=== PATIENT | male | born 1975 | race Caucasian/White ===

== ENCOUNTER 2022-03-29 23:24 | Inpatient (IN) | payer OTHER ==
[2022-03-29 23:27] VITALS: BMI 27.1
[2022-03-30] MEDS ORDERED: ACETAMINOPHEN 500 MG TABLET (FP) PO ONE (00:46)
[2022-03-30] MEDS ORDERED: ACETAMINOPHEN 325 MG TABLET (FP) ONE ×2 (00:51→14:36)
[2022-03-30 02:05] LABS: BASO % 0.8 % (0-2.0); EOS % 0.6 % (0-4.5); HEMATOCRIT 29.9 % (35.4-49); HEMOGLOBIN 10.1 GM/dL (11.7-16.9); LYMPH % 27.9 % (8-40); MCHC 33.7 g/dl (32.0-35.9); MEAN CELL VOLUME 77.2 fl (80-96); MEAN PLT VOLUME 7.4 fl (7.5-11.1); MONO % 10.1 % (3.8-10.2); NEUT % 60.6 % (42.8-82.8); PLATELET COUNT 70 10^3/uL (134-434); RBC 3.87 M/mm3 (4.00-5.60); RDW 16.9 % (11.9-15.9); WHITE BLOOD COUNT 2.6 K/mm3 (4.0-10.0)
[2022-03-30 02:23] LABS: CALCIUM 8.1 mg/dL (8.5-10.1)
[2022-03-30 02:24] LABS: ALBUMIN 3.1 g/dl (3.4-5.0); BLOOD UREA NITROGEN 6.2 mg/dL (7-18); CO2 25 mmol/L (21-32); GLUCOSE,RANDOM 94 mg/dL (74-106)
[2022-03-30 02:27] LABS: CREATININE 0.6 mg/dL (0.55-1.3); SGOT/AST 57 U/L (15-37); SGPT/ALT 37 U/L (13-61)
[2022-03-30 02:28] LABS: TOT PROT 8.1 g/dl (6.4-8.2)
[2022-03-30 02:29] LABS: BILIRUBIN,TOTAL 1.8 mg/dL (0.2-1)
[2022-03-30 02:31] LABS: ALK PHOS 90 U/L (45-117)
[2022-03-30 02:38] LABS: ANION GAP 8 MMOL/L (8-16); CHLORIDE 105 mmol/L (98-107); SODIUM 137 mmol/L (136-145)
[2022-03-30] MEDS ORDERED: VANCOMYCIN 1 GM in D5W (PRE-DOCKED) 1,000 MG/250 ML IVPB ONE (02:53)
[2022-03-30] MEDS ORDERED: KCL 10 MEQ IVPB 10 MEQ/100 ML INFUS.BAG IVPB ONE ×3 (02:57→05:34)
[2022-03-30] MEDS: KCL 10 MEQ IVPB 10 MEQ/100 ML INFUS.BAG IVPB SCH ×3 (03:03→05:58)
[2022-03-30] MEDS ORDERED: VANCOMYCIN/WATER FOR INJ (PEG) 1,000 MG/200 ML BAG IVPB ONE (03:16)
[2022-03-30] MEDS ORDERED: THIAMINE HCL 200 MG/2 ML VIAL IVPB ONE (03:45)
[2022-03-30] MEDS ORDERED: MEROPENEM 1 GM in DEXTROSE 5%-WATER 100 ML IVPB ONE (03:51)
[2022-03-30] MEDS ORDERED: THIAMINE HCL 200 MG/2 ML VIAL ONE (04:32)
[2022-03-30] MEDS: LACTATED RINGERS SOLUTION 1,000 ML IV SCH ×2 (04:38→21:17)
[2022-03-30 04:48] LABS: MAGNESIUM 1.6 mg/dL (1.8-2.4)
[2022-03-30 04:52] LABS: PHOSPHOROUS 2.9 mg/dL (2.5-4.9)
[2022-03-30] MEDS ORDERED: MAGNESIUM 2GM/50ML STERILE WATER IVPB IVPB ONE (06:35)
[2022-03-30] MEDS ORDERED: chlordiazePOXIDE HCL 25 MG CAPSULE PO PRN (06:39)
[2022-03-30] MEDS ORDERED: MAGNESIUM SULFATE IN WATER 2 GM/50 ML IVPB IVPB ONE (06:58)
[2022-03-30] MEDS ORDERED: CLINDAMYCIN 300 MG PREMIX IVPB 300 MG/50 ML BAG IVPB SCH (07:00)
[2022-03-30] MEDS ORDERED: chlordiazePOXIDE HCL 25 MG CAPSULE ONE ×3 (07:07→19:53)
[2022-03-30] MEDS: chlordiazePOXIDE HCL 25 MG CAPSULE PO SCH ×4 (07:09→23:36)
[2022-03-30 07:14] LABS: MAGNESIUM 1.7 mg/dL (1.8-2.4)
[2022-03-30 07:18] LABS: PHOSPHOROUS 3.1 mg/dL (2.5-4.9)
[2022-03-30 08:23] LABS: PH,URINE 7.5 (5.0-8.0); URINE APPEARANCE CLEAR; URINE BILIRUBIN NEGATIVE (NEGATIVE); URINE COLOR DK YELLOW; URINE GLUCOSE (UA) NEGATIVE (NEGATIVE); URINE KETONE 1+ (NEGATIVE); URINE LEUK ESTERASE NEGATIVE (NEGATIVE); URINE NITRITE NEGATIVE (NEGATIVE); URINE PROTEIN NEGATIVE (NEGATIVE)
[2022-03-30] MEDS ORDERED: MULTIVITAMINS (DAILY MVI) TABLET (FP) ONE (08:58)
[2022-03-30] MEDS ORDERED: THIAMINE HCL 100 MG TABLET (FP) ONE (08:58)
[2022-03-30] MEDS ORDERED: POTASSIUM CHLORIDE TABS 20 MEQ TABLET.ER (FP) PO ONE ×2 (08:58→09:53)
[2022-03-30] MEDS: POTASSIUM CHLORIDE TABS 20 MEQ TABLET.ER (FP) PO SCH ×2 (09:09→09:53)
[2022-03-30] MEDS: MULTIVITAMINS (DAILY MVI) TABLET (FP) PO SCH (09:09)
[2022-03-30] MEDS: THIAMINE HCL 100 MG TABLET (FP) PO SCH (09:10)
[2022-03-30] MEDS: FOLIC ACID 1 MG TABLET (FP) PO SCH (09:54)
[2022-03-30] MEDS ORDERED: FOLIC ACID 1 MG TABLET (FP) ONE (09:54)
[2022-03-30] MEDS ORDERED: ENOXAPARIN NA (PORCINE) 40 MG/0.4 ML DISP.SYRIN SQ SCH (10:00)
[2022-03-30 10:50] LABS: INR 1.38 (0.83-1.09); PROTHROMBIN TIME (PATIENT) 15.9 SEC (9.7-13.0)
[2022-03-30 10:53] LABS: ACTIVATED PTT 35.6 SECONDS (25.2-36.5); BASO % 0.4 % (0-2.0); EOS % 2.9 % (0-4.5); HEMATOCRIT 30.1 % (35.4-49); HEMOGLOBIN 10.1 GM/dL (11.7-16.9); MCH 26.1 pg (25.7-33.7); MCHC 33.7 g/dl (32.0-35.9); MEAN CELL VOLUME 77.3 fl (80-96); MEAN PLT VOLUME 7.8 fl (7.5-11.1); MONO % 9.2 % (3.8-10.2); NEUT % 60.5 % (42.8-82.8); PLATELET COUNT 71 10^3/uL (134-434); RBC 3.89 M/mm3 (4.00-5.60); RDW 17.1 % (11.9-15.9)
[2022-03-30 10:57] LABS: RETICULOCYTES 1.48 % (0.5-1.5)
[2022-03-30 11:03] LABS: CHLORIDE 105 mmol/L (98-107); SODIUM 136 mmol/L (136-145)
[2022-03-30 11:25] LABS: GLUCOSE,RANDOM 137 mg/dL (74-106); TOTAL IRON BINDING CAPACITY 343 ug/dL (250-450)
[2022-03-30 11:27] LABS: ALK PHOS 85 U/L (45-117); CREATININE 0.7 mg/dL (0.55-1.3); SGPT/ALT 35 U/L (13-61); TOT PROT 7.7 g/dl (6.4-8.2)
[2022-03-30 11:29] LABS: ALBUMIN 2.9 g/dl (3.4-5.0); IRON SERUM 57 ug/dL (50-175); SGOT/AST 53 U/L (15-37)
[2022-03-30 11:31] LABS: CALCIUM 8.2 mg/dL (8.5-10.1); CO2 23 mmol/L (21-32)
[2022-03-30 12:25] LABS: LDH 179 U/L (87-246)
[2022-03-30 12:26] LABS: ANION GAP 8 MMOL/L (8-16)
[2022-03-30] MEDS ORDERED: CLINDAMYCIN 600MG PREMIX IVPB 600 MG/50 ML BAG IVPB ONE (19:46)
[2022-03-30] MEDS: CLINDAMYCIN 600MG PREMIX IVPB 600 MG/50 ML BAG IVPB SCH (19:50)
[2022-03-30] MEDS: LORazepam 2 MG/ML SDV VIAL IVPUSH PRN (21:12)
[2022-03-31] MEDS: CLINDAMYCIN 600MG PREMIX IVPB 600 MG/50 ML BAG IVPB SCH ×3 (01:03→18:03)
[2022-03-31] MEDS: chlordiazePOXIDE HCL 25 MG CAPSULE PO SCH ×4 (05:55→22:03)
[2022-03-31] MEDS: LACTATED RINGERS SOLUTION 1,000 ML IV SCH (05:56)
[2022-03-31] MEDS: FOLIC ACID 1 MG TABLET (FP) PO SCH (09:48)
[2022-03-31] MEDS: VENLAFAXINE HCL 75 MG E.R. CAPSULES PO SCH (09:48)
[2022-03-31] MEDS: MULTIVITAMINS (DAILY MVI) TABLET (FP) PO SCH (09:48)
[2022-03-31] MEDS: LORazepam 2 MG/ML SDV VIAL IVPUSH PRN ×2 (09:54→22:49)
[2022-03-31 10:47] LABS: BASO % 0.9 % (0-2.0); EOS % 3.5 % (0-4.5); HEMATOCRIT 28.4 % (35.4-49); HEMOGLOBIN 9.5 GM/dL (11.7-16.9); LYMPH % 34.2 % (8-40); MCH 26.3 pg (25.7-33.7); MCHC 33.4 g/dl (32.0-35.9); MEAN CELL VOLUME 78.6 fl (80-96); MEAN PLT VOLUME 7.4 fl (7.5-11.1); MONO % 8.8 % (3.8-10.2); NEUT % 52.6 % (42.8-82.8); PLATELET COUNT 66 10^3/uL (134-434); RBC 3.61 M/mm3 (4.00-5.60)
[2022-03-31 10:56] LABS: WHITE BLOOD COUNT 1.9 K/mm3 (4.0-10.0)
[2022-03-31 11:08] LABS: CALCIUM 7.9 mg/dL (8.5-10.1)
[2022-03-31 11:09] LABS: ALBUMIN 2.4 g/dl (3.4-5.0); BLOOD UREA NITROGEN 9.1 mg/dL (7-18)
[2022-03-31 11:10] LABS: MAGNESIUM 1.8 mg/dL (1.8-2.4)
[2022-03-31 11:12] LABS: CREATININE 0.5 mg/dL (0.55-1.3)
[2022-03-31 11:15] LABS: BILIRUBIN,TOTAL 0.9 mg/dL (0.2-1); TOT PROT 6.7 g/dl (6.4-8.2)
[2022-03-31] MEDS: THIAMINE HCL 100 MG TABLET (FP) PO SCH (12:33)
[2022-03-31] MEDS: AZTREONAM 1 GM VIAL (RESTRICTED TO ID) IVPB SCH ×2 (17:11→23:49)
[2022-03-31] MEDS: ACETAMINOPHEN 325 MG TABLET (FP) PO PRN (22:00)
[2022-03-31] MEDS: HEPARIN NA (PORCINE) 5,000 UNITS/ML 1ML VIAL SQ SCH (22:01)
[2022-04-01] MEDS ORDERED: chlordiazePOXIDE HCL 10 MG CAPSULE PO PRN
[2022-04-01] MEDS: AZTREONAM 1 GM in DEXTROSE 5%-WATER - 50 ML IVPB SCH ×3 (02:09→18:28)
[2022-04-01] MEDS: CLINDAMYCIN 600MG PREMIX IVPB 600 MG/50 ML BAG IVPB SCH ×3 (02:44→19:25)
[2022-04-01] MEDS: ACETAMINOPHEN 325 MG TABLET (FP) PO PRN ×2 (04:15→23:30)
[2022-04-01] MEDS: chlordiazePOXIDE HCL 10 MG CAPSULE PO SCH ×4 (05:40→23:27)
[2022-04-01] MEDS: AZTREONAM 1 GM VIAL (RESTRICTED TO ID) IVPB SCH ×2 (07:41→18:15)
[2022-04-01] MEDS: VENLAFAXINE HCL 75 MG E.R. CAPSULES PO SCH (09:18)
[2022-04-01] MEDS: FOLIC ACID 1 MG TABLET (FP) PO SCH (09:18)
[2022-04-01] MEDS: THIAMINE HCL 100 MG TABLET (FP) PO SCH (09:18)
[2022-04-01] MEDS: MULTIVITAMINS (DAILY MVI) TABLET (FP) PO SCH (09:18)
[2022-04-01] MEDS: HEPARIN NA (PORCINE) 5,000 UNITS/ML 1ML VIAL SQ SCH ×2 (09:18→21:44)
[2022-04-01 09:38] LABS: BASO % 1.2 % (0-2.0); HEMATOCRIT 30.1 % (35.4-49); HEMOGLOBIN 10.3 GM/dL (11.7-16.9); LYMPH % 26.3 % (8-40); MCH 26.5 pg (25.7-33.7); MCHC 34.3 g/dl (32.0-35.9); MEAN CELL VOLUME 77.3 fl (80-96); MEAN PLT VOLUME 8.3 fl (7.5-11.1); NEUT % 59.5 % (42.8-82.8); PLATELET COUNT 84 10^3/uL (134-434); WHITE BLOOD COUNT 2.7 K/mm3 (4.0-10.0)
[2022-04-01 10:06] LABS: CALCIUM 7.8 mg/dL (8.5-10.1)
[2022-04-01 10:07] LABS: ALBUMIN 2.9 g/dl (3.4-5.0); BLOOD UREA NITROGEN 8.5 mg/dL (7-18)
[2022-04-01 10:10] LABS: CREATININE 0.5 mg/dL (0.55-1.3)
[2022-04-01 10:12] LABS: BILIRUBIN,TOTAL 1.4 mg/dL (0.2-1); TOT PROT 7.8 g/dl (6.4-8.2)
[2022-04-01] MEDS ORDERED: POTASSIUM CHLORIDE ORAL LIQUID 20 MEQ/15 ML PO ONE (11:03)
[2022-04-01 12:53] LABS: HIV INTERPRETATION NEGATIVE (NEGATIVE)
[2022-04-01] MEDS: MAGNESIUM OXIDE 400 MG TABLET (FP) PO SCH ×2 (14:25→21:44)
[2022-04-01] MEDS: LORazepam 2 MG/ML SDV VIAL IVPUSH PRN (20:18)
[2022-04-02] MEDS: CLINDAMYCIN 600MG PREMIX IVPB 600 MG/50 ML BAG IVPB SCH ×2 (01:32→10:03)
[2022-04-02] MEDS: AZTREONAM 1 GM in DEXTROSE 5%-WATER - 50 ML IVPB SCH ×2 (02:22→09:36)
[2022-04-02] MEDS: LORazepam 2 MG/ML SDV VIAL IVPUSH PRN (02:42)
[2022-04-02] MEDS: chlordiazePOXIDE HCL 10 MG CAPSULE PO SCH ×2 (05:01→16:55)
[2022-04-02] MEDS: ACETAMINOPHEN 325 MG TABLET (FP) PO PRN (06:56)
[2022-04-02] MEDS: FOLIC ACID 1 MG TABLET (FP) PO SCH (09:35)
[2022-04-02] MEDS: VENLAFAXINE HCL 75 MG E.R. CAPSULES PO SCH (09:35)
[2022-04-02] MEDS: MULTIVITAMINS (DAILY MVI) TABLET (FP) PO SCH (09:35)
[2022-04-02] MEDS: THIAMINE HCL 100 MG TABLET (FP) PO SCH (09:35)
[2022-04-02] MEDS: HEPARIN NA (PORCINE) 5,000 UNITS/ML 1ML VIAL SQ SCH ×2 (09:36→21:54)
[2022-04-02] MEDS: MAGNESIUM OXIDE 400 MG TABLET (FP) PO SCH ×2 (09:37→21:54)
[2022-04-03] MEDS ORDERED: chlordiazePOXIDE HCL 10 MG CAPSULE PO ONE (05:00)
[2022-04-03] MEDS: MAGNESIUM OXIDE 400 MG TABLET (FP) PO SCH ×2 (09:57→21:57)
[2022-04-03] MEDS: THIAMINE HCL 100 MG TABLET (FP) PO SCH (09:57)
[2022-04-03] MEDS: VENLAFAXINE HCL 75 MG E.R. CAPSULES PO SCH (09:57)
[2022-04-03] MEDS: FOLIC ACID 1 MG TABLET (FP) PO SCH (09:57)
[2022-04-03] MEDS: MULTIVITAMINS (DAILY MVI) TABLET (FP) PO SCH (09:57)
[2022-04-03] MEDS: HEPARIN NA (PORCINE) 5,000 UNITS/ML 1ML VIAL SQ SCH ×2 (09:58→21:56)
[2022-04-03 10:02] LABS: BASO % 1.3 % (0-2.0); EOS % 3.6 % (0-4.5); HEMATOCRIT 35.2 % (35.4-49); HEMOGLOBIN 11.6 GM/dL (11.7-16.9); MEAN CELL VOLUME 78.8 fl (80-96); MEAN PLT VOLUME 8.1 fl (7.5-11.1); MONO % 9.6 % (3.8-10.2); NEUT % 52.5 % (42.8-82.8); PLATELET COUNT 96 10^3/uL (134-434); RBC 4.46 M/mm3 (4.00-5.60); RDW 17.1 % (11.9-15.9); WHITE BLOOD COUNT 2.6 K/mm3 (4.0-10.0)
[2022-04-03 10:10] LABS: CALCIUM 8.2 mg/dL (8.5-10.1)
[2022-04-03 10:11] LABS: ALBUMIN 2.8 g/dl (3.4-5.0); BLOOD UREA NITROGEN 6.9 mg/dL (7-18)
[2022-04-03 10:14] LABS: CREATININE 0.5 mg/dL (0.55-1.3)
[2022-04-03 10:16] LABS: TOT PROT 7.8 g/dl (6.4-8.2)
[2022-04-03] MEDS ORDERED: INSULIN (NOVOLOG) ASPART 100 UNITS/ML 10ML VIAL ONE (21:34)
[2022-04-04] MEDS: FOLIC ACID 1 MG TABLET (FP) PO SCH (09:24)
[2022-04-04] MEDS: THIAMINE HCL 100 MG TABLET (FP) PO SCH (09:24)
[2022-04-04] MEDS: MAGNESIUM OXIDE 400 MG TABLET (FP) PO SCH ×2 (09:24→22:12)
[2022-04-04] MEDS: VENLAFAXINE HCL 75 MG E.R. CAPSULES PO SCH (09:24)
[2022-04-04] MEDS: MULTIVITAMINS (DAILY MVI) TABLET (FP) PO SCH (09:25)
[2022-04-04 09:57] LABS: BASO % 1.2 % (0-2.0); EOS % 3.1 % (0-4.5); HEMATOCRIT 33.2 % (35.4-49); HEMOGLOBIN 11.4 GM/dL (11.7-16.9); LYMPH % 34.5 % (8-40); MCH 26.8 pg (25.7-33.7); MCHC 34.3 g/dl (32.0-35.9); MEAN CELL VOLUME 77.9 fl (80-96); MEAN PLT VOLUME 7.4 fl (7.5-11.1); NEUT % 51.2 % (42.8-82.8); PLATELET COUNT 100 10^3/uL (134-434); RBC 4.26 M/mm3 (4.00-5.60); RDW 18.2 % (11.9-15.9); WHITE BLOOD COUNT 2.9 K/mm3 (4.0-10.0)
[2022-04-04 10:21] LABS: BLOOD UREA NITROGEN 7.4 mg/dL (7-18)
[2022-04-04 10:23] LABS: CALCIUM 8.5 mg/dL (8.5-10.1)
[2022-04-04 10:24] LABS: CREATININE 0.5 mg/dL (0.55-1.3)
[2022-04-04] MEDS: HEPARIN NA (PORCINE) 5,000 UNITS/ML 1ML VIAL SQ SCH ×2 (10:33→22:15)
[2022-04-04] MEDS ORDERED: POTASSIUM CHLORIDE TABS 20 MEQ TABLET.ER (FP) PO ONE (11:46)
[2022-04-04] MEDS: ACETAMINOPHEN 325 MG TABLET (FP) PO PRN (22:12)
[2022-04-05 08:04] LABS: CALCIUM 8.5 mg/dL (8.5-10.1)
[2022-04-05 08:05] LABS: BLOOD UREA NITROGEN 8.8 mg/dL (7-18)
[2022-04-05 08:08] LABS: CREATININE 0.5 mg/dL (0.55-1.3)
[2022-04-05 08:25] LABS: BASO % 1.3 % (0-2.0); EOS % 2.4 % (0-4.5); HEMATOCRIT 32.2 % (35.4-49); HEMOGLOBIN 10.8 GM/dL (11.7-16.9); LYMPH % 42.4 % (8-40); MCH 26.2 pg (25.7-33.7); MCHC 33.6 g/dl (32.0-35.9); MEAN CELL VOLUME 78.1 fl (80-96); MEAN PLT VOLUME 7.6 fl (7.5-11.1); MONO % 12.3 % (3.8-10.2); NEUT % 41.6 % (42.8-82.8); PLATELET COUNT 95 10^3/uL (134-434); RBC 4.13 M/mm3 (4.00-5.60); RDW 17.9 % (11.9-15.9); WHITE BLOOD COUNT 2.4 K/mm3 (4.0-10.0)
[2022-04-05] MEDS ORDERED: POTASSIUM CHLORIDE TABS 20 MEQ TABLET.ER (FP) PO SCH (10:00)
[2022-04-05] MEDS: HEPARIN NA (PORCINE) 5,000 UNITS/ML 1ML VIAL SQ SCH (10:04)
[2022-04-05] MEDS: VENLAFAXINE HCL 75 MG E.R. CAPSULES PO SCH (10:05)
[2022-04-05] MEDS: THIAMINE HCL 100 MG TABLET (FP) PO SCH (10:05)
[2022-04-05] MEDS: FOLIC ACID 1 MG TABLET (FP) PO SCH (10:05)
[2022-04-05] MEDS: MAGNESIUM OXIDE 400 MG TABLET (FP) PO SCH (10:06)
[2022-04-05] MEDS: MULTIVITAMINS (DAILY MVI) TABLET (FP) PO SCH (10:06)
[2022-04-05 15:14] VITALS: TEMP 97.3
[2022-04-05 16:06] VITALS: BP 115/71; PULSE 73; RESP 20
== END 2022-04-05 16:56 | disposition other institution (70) | DRG 380 ==
LOC: JER 23:24 → JERBED 03-30 03:04 → OBSVTOIN 03-30 03:47 → JERBED 03-30 09:18 → J8W 03-30 20:24
PROVIDERS: ADMIT Internal Medicine; ATTEND Internal Medicine
DX: L97.329 Non-pressure chronic ulcer of left ankle with unspecified severity (principal); L03.90 Cellulitis, unspecified; D61.818 Other pancytopenia; F10.239 Alcohol dependence with withdrawal, unspecified; S91.009A Unspecified open wound, unspecified ankle, initial encounter; E87.6 Hypokalemia; K74.60 Unspecified cirrhosis of liver; D69.6 Thrombocytopenia, unspecified; I83.023 Varicose veins of left lower extremity with ulcer of ankle; F17.210 Nicotine dependence, cigarettes, uncomplicated; Z88.0 Allergy status to penicillin; E83.42 Hypomagnesemia; X58.XXXA Exposure to other specified factors, initial encounter; Y93.9 Activity, unspecified; Y92.89 Other specified places as the place of occurrence of the external cause; Y99.9 Unspecified external cause status
CPT/HCPCS: 0241U-QW; 36415; 73610-TC-LT-FY; 73630-TC-LT; 80048; 80053; 81003; 82728; 82962; 83540; 83550; 83615; 83735; 84100; 84155; 84165; 85025; 85045; 85610; 85730; 86140; 87040; 87070; 87086; 87186; 87205; 87389; 87522; 87529; 88300-TC; 93005; 93010; 99285-25; G0378; J1644

== ENCOUNTER 2022-04-05 17:24 | Inpatient (IN) | payer OTHER ==
[2022-04-05 18:32] VITALS: BMI 28.0
[2022-04-05] MEDS ORDERED: MELATONIN 5 MG TABLETS PO PRN (19:59)
[2022-04-05] MEDS ORDERED: POLYETHYLENE GLYCOL (HEALTHYLAX) 3350 17 GM PACKET PO PRN (19:59)
[2022-04-05] MEDS ORDERED: BENZOCAINE/MENTHOL (CHLORASEPTIC ) LOZENGE MM PRN (19:59)
[2022-04-05] MEDS ORDERED: LOPERAMIDE HCL 2 MG CAPSULE PO PRN (19:59)
[2022-04-05] MEDS ORDERED: guaiFENesin 200 MG/10 ML 10 ML UNIT-DOSE CUPS PO PRN (19:59)
[2022-04-05] MEDS ORDERED: MAGNESIUM HYDROX 2400MG/30ML ORAL SUSPENSION 30 ML CUP PO PRN (19:59)
[2022-04-05] MEDS ORDERED: MAG HYDROX/AL HYDROX/SIMETH 30 ML UNIT-DOSE CUP PO PRN (19:59)
[2022-04-05] MEDS ORDERED: P-EPHED 60MG/TRIPROLIDI 2.5MG TABLET PO PRN (19:59)
[2022-04-06] MEDS: THIAMINE HCL 100 MG TABLET (FP) PO SCH ×2 (00:47→21:42)
[2022-04-06] MEDS: IBUPROFEN 400 MG TABLET (FP) PO PRN (00:47)
[2022-04-06] MEDS: PRENATAL VITAMINS W/ FOLIC ACID TABLET (FP) PO SCH (10:16)
[2022-04-06] MEDS: traZODone HCL 50 MG TABLET (FP) PO SCH (21:43)
[2022-04-07] MEDS: PRENATAL VITAMINS W/ FOLIC ACID TABLET (FP) PO SCH (10:11)
[2022-04-07] MEDS: IBUPROFEN 400 MG TABLET (FP) PO PRN (10:13)
[2022-04-07] MEDS: THIAMINE HCL 100 MG TABLET (FP) PO SCH (21:34)
[2022-04-07] MEDS: traZODone HCL 50 MG TABLET (FP) PO SCH (21:34)
[2022-04-08] MEDS: PRENATAL VITAMINS W/ FOLIC ACID TABLET (FP) PO SCH (11:26)
[2022-04-08] MEDS: traZODone HCL 50 MG TABLET (FP) PO SCH (21:54)
[2022-04-08] MEDS: THIAMINE HCL 100 MG TABLET (FP) PO SCH (21:54)
[2022-04-09] MEDS: IBUPROFEN 400 MG TABLET (FP) PO PRN (05:59)
[2022-04-09] MEDS: PRENATAL VITAMINS W/ FOLIC ACID TABLET (FP) PO SCH (10:38)
[2022-04-09] MEDS: IBUPROFEN 600 MG TABLET (FP) PO PRN (13:05)
[2022-04-09] MEDS: traZODone HCL 50 MG TABLET (FP) PO SCH (21:17)
[2022-04-09] MEDS: THIAMINE HCL 100 MG TABLET (FP) PO SCH (21:17)
[2022-04-10] MEDS: IBUPROFEN 600 MG TABLET (FP) PO PRN ×2 (06:39→21:37)
[2022-04-10] MEDS: PRENATAL VITAMINS W/ FOLIC ACID TABLET (FP) PO SCH (10:25)
[2022-04-10] MEDS: traZODone HCL 50 MG TABLET (FP) PO SCH (21:36)
[2022-04-10] MEDS: THIAMINE HCL 100 MG TABLET (FP) PO SCH (21:36)
[2022-04-11] MEDS: IBUPROFEN 600 MG TABLET (FP) PO PRN ×2 (06:15→12:57)
[2022-04-11 06:53] VITALS: BP 104/60; PULSE 97; RESP 16; TEMP 97.8
[2022-04-11] MEDS: PRENATAL VITAMINS W/ FOLIC ACID TABLET (FP) PO SCH (10:17)
[2022-04-11 14:54] LABS: BASO % 2.1 % (0-2.0); EOS % 2.4 % (0-4.5); HEMATOCRIT 29.3 % (35.4-49); HEMOGLOBIN 9.6 GM/dL (11.7-16.9); LYMPH % 29.4 % (8-40); MCH 26.3 pg (25.7-33.7); MCHC 32.6 g/dl (32.0-35.9); MEAN CELL VOLUME 80.5 fl (80-96); MEAN PLT VOLUME 8.8 fl (7.5-11.1); MONO % 10.5 % (3.8-10.2); NEUT % 55.6 % (42.8-82.8); PLATELET COUNT 101 10^3/uL (134-434); RBC 3.64 M/mm3 (4.00-5.60); RDW 18.7 % (11.9-15.9); WHITE BLOOD COUNT 2.8 K/mm3 (4.0-10.0)
[2022-04-11 15:07] LABS: BILIRUBIN,TOTAL 0.5 mg/dL (0.2-1); CALCIUM 8.5 mg/dL (8.5-10.1); TOT PROT 6.9 g/dl (6.4-8.2)
[2022-04-11 15:08] LABS: ALBUMIN 2.7 g/dl (3.4-5.0); BLOOD UREA NITROGEN 5.9 mg/dL (7-18)
[2022-04-11 15:11] LABS: CREATININE 0.6 mg/dL (0.55-1.3)
== END 2022-04-11 15:22 | disposition left against medical advice (07) | DRG 770 ==
LOC: YASAS 17:24 → Y3W 20:07
PROVIDERS: ADMIT Allergy & Immunology; ATTEND Psychiatry & Neurology Pain Medicine
PROC: HZ42ZZZ Group Counseling for Substance Abuse Treatment, Cognitive-Behavioral (ICD-10-PCS; principal; 2022-04-05)
DX: F10.20 Alcohol dependence, uncomplicated (principal); F17.210 Nicotine dependence, cigarettes, uncomplicated; F10.282 Alcohol dependence with alcohol-induced sleep disorder; F39 Unspecified mood [affective] disorder; F43.10 Post-traumatic stress disorder, unspecified; F41.9 Anxiety disorder, unspecified; F32.A Depression, unspecified; E87.6 Hypokalemia; K74.60 Unspecified cirrhosis of liver; L97.329 Non-pressure chronic ulcer of left ankle with unspecified severity; R76.11 Nonspecific reaction to tuberculin skin test without active tuberculosis; Z87.820 Personal history of traumatic brain injury; Z99.89 Dependence on other enabling machines and devices; Z88.0 Allergy status to penicillin
CPT/HCPCS: 36415; 71046-TC-FY; 80053; 84132; 85025; C9803-CS; U0003; U0005

== ENCOUNTER 2023-11-25 03:40 | Inpatient (IN) | payer OTHER ==
[2023-11-25 03:44] VITALS: BMI 28.3
[2023-11-25] MEDS ORDERED: chlordiazePOXIDE HCL 25 MG CAPSULE ONE (05:20)
[2023-11-25] MEDS: chlordiazePOXIDE HCL 25 MG CAPSULE PO ONE (05:24)
[2023-11-25 06:59] LABS: HEMATOCRIT 31.8 % (35.4-49); HEMOGLOBIN 10.9 GM/dL (11.7-16.9); MCH 29.7 pg (25.7-33.7); MCHC 34.3 g/dl (32.0-35.9); MEAN CELL VOLUME 86.7 fl (80-96); PLATELET COUNT 82 10^3/uL (134-434); RBC 3.67 M/mm3 (4.00-5.60); RDW 17.8 % (11.9-15.9); WHITE BLOOD COUNT 2.8 K/mm3 (4.0-10.0)
[2023-11-25 07:16] LABS: CHLORIDE 103 mmol/L (98-107); SODIUM 135 mmol/L (136-145)
[2023-11-25 07:19] LABS: ALBUMIN 2.7 g/dl (3.4-5.0); BLOOD UREA NITROGEN 6.6 mg/dL (7-18); CALCIUM 7.7 mg/dL (8.5-10.1); CO2 26 mmol/L (21-32); GLUCOSE,RANDOM 82 mg/dL (74-106)
[2023-11-25 07:22] LABS: SGOT/AST 92 U/L (15-37); SGPT/ALT 48 U/L (13-61)
[2023-11-25 07:23] LABS: CREATININE 0.5 mg/dL (0.55-1.3)
[2023-11-25 07:24] LABS: BILIRUBIN,TOTAL 2.5 mg/dL (0.2-1); TOT PROT 7.9 g/dl (6.4-8.2)
[2023-11-25 07:25] LABS: ALK PHOS 149 U/L (45-117)
[2023-11-25 07:33] LABS: ANION GAP 6 mmol/L (4-13); POTASSIUM 2.6 mmol/L (3.5-5.1)
[2023-11-25] MEDS: POTASSIUM CHLORIDE ORAL LIQUID 20 MEQ/15 ML PO ONE (08:20)
[2023-11-25] MEDS ORDERED: POTASSIUM CHLORIDE ORAL LIQUID 20 MEQ/15 ML ONE (08:22)
[2023-11-25 08:58] LABS: ANISOCYTOSIS 0; MACROCYTOSIS 0
[2023-11-25 09:21] LABS: MAGNESIUM 1.2 mg/dL (1.8-2.4)
[2023-11-25 10:43] LABS: ERYTHROCYTE SEDIMENTATION RATE 85 mm/hr (0-10)
[2023-11-25] MEDS ORDERED: THIAMINE 100 MG TABLET ONE (13:46)
[2023-11-25] MEDS ORDERED: FOLIC ACID 1 MG TABLET (FP) ONE (13:46)
[2023-11-25] MEDS: THIAMINE 100 MG TABLET PO SCH (13:56)
[2023-11-25] MEDS: FOLIC ACID 1 MG TABLET (FP) PO SCH (13:56)
[2023-11-25] MEDS: COLLAGENASE CLOSTRIDIUM HIST. 30 GRAMS TUBE TP SCH (14:48)
[2023-11-25] MEDS ORDERED: KCL 10 MEQ IVPB 10 MEQ/100 ML INFUS.BAG IVPB ONE (15:28)
[2023-11-25] MEDS: KCL 10 MEQ IVPB 10 MEQ/100 ML INFUS.BAG IVPB SCH (15:39)
[2023-11-25] MEDS ORDERED: MAGNESIUM SULFATE IN WATER 2 GM/50 ML IVPB IVPB ONE (16:45)
[2023-11-25] MEDS: MAGNESIUM 2GM/50ML STERILE WATER IVPB IVPB ONE (16:57)
[2023-11-25] MEDS ORDERED: VANCOMYCIN/WATER 1250 MG 1,250 MG/250 ML BAG IVPB ONE (17:07)
[2023-11-25] MEDS: VANCOMYCIN/WATER 1250 MG 1,250 MG/250 ML BAG IVPB ONE (17:33)
[2023-11-25 18:34] LABS: BLOOD UREA NITROGEN 5.7 mg/dL (7-18); CALCIUM 7.9 mg/dL (8.5-10.1); CREATININE 0.4 mg/dL (0.55-1.3); POTASSIUM 3.2 mmol/L (3.5-5.1)
[2023-11-26 07:42] LABS: BASO % 1.7 % (0-2.0); EOS % 2.6 % (0-4.5); HEMATOCRIT 30.9 % (35.4-49); HEMOGLOBIN 10.4 GM/dL (11.7-16.9); LYMPH % 28.3 % (8-40); MCH 29.5 pg (25.7-33.7); MCHC 33.7 g/dl (32.0-35.9); MEAN CELL VOLUME 87.6 fl (80-96); MEAN PLT VOLUME 7.7 fl (7.5-11.1); MONO % 17.2 % (3.8-10.2); NEUT % 50.2 % (42.8-82.8); PLATELET COUNT 85 10^3/uL (134-434); RBC 3.53 M/mm3 (4.00-5.60); RDW 17.1 % (11.9-15.9); WHITE BLOOD COUNT 2.2 K/mm3 (4.0-10.0)
[2023-11-26 07:52] LABS: POTASSIUM 3.2 mmol/L (3.5-5.1)
[2023-11-26 08:09] LABS: ALBUMIN 2.5 g/dl (3.4-5.0); BLOOD UREA NITROGEN 7.7 mg/dL (7-18)
[2023-11-26 08:11] LABS: CALCIUM 7.6 mg/dL (8.5-10.1)
[2023-11-26 08:13] LABS: BILIRUBIN,TOTAL 2.2 mg/dL (0.2-1); MAGNESIUM 1.5 mg/dL (1.8-2.4)
[2023-11-26 08:14] LABS: TOT PROT 7.4 g/dl (6.4-8.2)
[2023-11-26 08:16] LABS: CREATININE 0.4 mg/dL (0.55-1.3); PHOSPHOROUS 2.2 mg/dL (2.5-4.9)
[2023-11-26] MEDS ORDERED: MAGNESIUM SULF 50% (8.12 MEQ/2 ML-1 GM VIAL) IVPB ONE (08:32)
[2023-11-26] MEDS ORDERED: MAGNESIUM SULFATE IN WATER 2 GM/50 ML IVPB IVPB ONE (09:27)
[2023-11-26] MEDS ORDERED: POTASSIUM CHLORIDE ORAL LIQUID 20 MEQ/15 ML ONE (09:27)
[2023-11-26 09:37] LABS: RETICULOCYTES 1.07 % (0.5-1.5)
[2023-11-26] MEDS: POTASSIUM CHLORIDE ORAL LIQUID 20 MEQ/15 ML PO ONE (09:47)
[2023-11-26] MEDS: MAGNESIUM 2GM/50ML STERILE WATER IVPB IVPB ONE (09:47)
[2023-11-26] MEDS: POTASSIUM PHOSPHATE 15 MM in SODIUM CHLORIDE 250 ML IVPB ONE (11:14)
[2023-11-26] MEDS ORDERED: NAPH,MB-DB/K PH,MBDB POWDER PACKET ONE (13:06)
[2023-11-26] MEDS ORDERED: IBUPROFEN 400 MG TABLET (FP) PO ONE (13:07)
[2023-11-26] MEDS: NAPH,MB-DB/K PH,MBDB POWDER PACKET PO ONE (13:12)
[2023-11-26] MEDS: IBUPROFEN 400 MG TABLET (FP) PO PRN (13:12)
[2023-11-27 09:39] LABS: BASO % 2.4 % (0-2.0); EOS % 3.8 % (0-4.5); HEMATOCRIT 32.4 % (35.4-49); HEMOGLOBIN 11.1 GM/dL (11.7-16.9); LYMPH % 26.1 % (8-40); MCH 30.1 pg (25.7-33.7); MCHC 34.3 g/dl (32.0-35.9); MEAN CELL VOLUME 87.8 fl (80-96); MEAN PLT VOLUME 7.4 fl (7.5-11.1); MONO % 14.8 % (3.8-10.2); NEUT % 52.9 % (42.8-82.8); PLATELET COUNT 106 10^3/uL (134-434); RBC 3.69 M/mm3 (4.00-5.60); RDW 16.7 % (11.9-15.9)
[2023-11-27 10:01] LABS: POTASSIUM 3.3 mmol/L (3.5-5.1)
[2023-11-27 10:06] LABS: ALBUMIN 2.7 g/dl (3.4-5.0); BLOOD UREA NITROGEN 8.2 mg/dL (7-18); CALCIUM 8.1 mg/dL (8.5-10.1); MAGNESIUM 1.7 mg/dL (1.8-2.4)
[2023-11-27 10:08] LABS: CREATININE 0.5 mg/dL (0.55-1.3)
[2023-11-27 10:09] LABS: BILIRUBIN,TOTAL 1.8 mg/dL (0.2-1); PHOSPHOROUS 2.6 mg/dL (2.5-4.9)
[2023-11-27] MEDS: LORazepam 1 MG TABLET PO SCH (12:56)
[2023-11-27] MEDS: POTASSIUM CHLORIDE ORAL LIQUID 20 MEQ/15 ML PO ONE (12:57)
[2023-11-27] MEDS: MAGNESIUM SULF 50% (8.12 MEQ/2 ML-1 GM VIAL) IVPB ONE (12:57)
[2023-11-28 10:10] LABS: BASO % 2.7 % (0-2.0); EOS % 4.3 % (0-4.5); HEMATOCRIT 34.7 % (35.4-49); HEMOGLOBIN 11.5 GM/dL (11.7-16.9); LYMPH % 26.4 % (8-40); MCH 29.5 pg (25.7-33.7); MCHC 33.2 g/dl (32.0-35.9); MEAN CELL VOLUME 88.7 fl (80-96); MEAN PLT VOLUME 7.2 fl (7.5-11.1); MONO % 10.3 % (3.8-10.2); NEUT % 56.3 % (42.8-82.8); PLATELET COUNT 132 10^3/uL (134-434); RBC 3.91 M/mm3 (4.00-5.60); RDW 16.7 % (11.9-15.9); WHITE BLOOD COUNT 2.5 K/mm3 (4.0-10.0)
[2023-11-28] MEDS: LORazepam 1 MG TABLET PO PRN (10:46)
[2023-11-28 10:57] LABS: POTASSIUM 3.7 mmol/L (3.5-5.1)
[2023-11-28 11:01] LABS: CALCIUM 8.7 mg/dL (8.5-10.1)
[2023-11-28 11:02] LABS: ALBUMIN 2.9 g/dl (3.4-5.0); BLOOD UREA NITROGEN 7.7 mg/dL (7-18); MAGNESIUM 1.8 mg/dL (1.8-2.4)
[2023-11-28 11:05] LABS: CREATININE 0.6 mg/dL (0.55-1.3); PHOSPHOROUS 3.3 mg/dL (2.5-4.9)
[2023-11-28 11:06] LABS: BILIRUBIN,TOTAL 1.6 mg/dL (0.2-1); TOT PROT 8.6 g/dl (6.4-8.2)
[2023-11-28 13:21] LABS: HIV INTERPRETATION NEGATIVE (NEGATIVE)
[2023-11-29 04:27] VITALS: BP 108/72; PULSE 112; RESP 18; TEMP 98.1
[2023-11-29] MEDS: LORazepam 1 MG TABLET PO SCH (06:20)
[2023-11-29 11:17] LABS: BASO % 2.1 % (0-2.0); EOS % 3.5 % (0-4.5); HEMATOCRIT 34.6 % (35.4-49); HEMOGLOBIN 11.4 GM/dL (11.7-16.9); LYMPH % 22.2 % (8-40); MCH 29.4 pg (25.7-33.7); MCHC 32.8 g/dl (32.0-35.9); MEAN CELL VOLUME 89.5 fl (80-96); MEAN PLT VOLUME 7.6 fl (7.5-11.1); MONO % 13.5 % (3.8-10.2); NEUT % 58.7 % (42.8-82.8); PLATELET COUNT 146 10^3/uL (134-434); RBC 3.86 M/mm3 (4.00-5.60); RDW 16.7 % (11.9-15.9); WHITE BLOOD COUNT 3.2 K/mm3 (4.0-10.0)
[2023-11-29 11:44] LABS: POTASSIUM 3.8 mmol/L (3.5-5.1)
[2023-11-29 11:54] LABS: ALBUMIN 2.7 g/dl (3.4-5.0); BLOOD UREA NITROGEN 8.7 mg/dL (7-18); CALCIUM 8.3 mg/dL (8.5-10.1); MAGNESIUM 1.8 mg/dL (1.8-2.4)
[2023-11-29 11:57] LABS: CREATININE 0.6 mg/dL (0.55-1.3); PHOSPHOROUS 3.2 mg/dL (2.5-4.9)
[2023-11-29 11:59] LABS: BILIRUBIN,TOTAL 1.3 mg/dL (0.2-1); TOT PROT 8.1 g/dl (6.4-8.2)
[2023-11-30] MEDS ORDERED: LORazepam 0.5 MG TABLET PO PRN
[2023-11-30] MEDS ORDERED: LORazepam 0.5 MG TABLET PO SCH (05:00)
[2023-12-01] MEDS ORDERED: LORazepam 0.5 MG TABLET PO ONE (05:00)
== END 2023-11-29 11:27 | disposition left against medical advice (07) | DRG 380 ==
LOC: JER 03:40 → JERBED 09:48 → J6S 11-26 19:39
PROVIDERS: ADMIT Internal Medicine; ATTEND Internal Medicine
DX: L97.328 Non-pressure chronic ulcer of left ankle with other specified severity (principal); D69.6 Thrombocytopenia, unspecified; K70.30 Alcoholic cirrhosis of liver without ascites; D50.9 Iron deficiency anemia, unspecified; E87.6 Hypokalemia; K80.80 Other cholelithiasis without obstruction; F10.10 Alcohol abuse, uncomplicated; E80.6 Other disorders of bilirubin metabolism; F41.8 Other specified anxiety disorders; E83.42 Hypomagnesemia; Z59.00 Homelessness unspecified; Z99.89 Dependence on other enabling machines and devices; Z88.0 Allergy status to penicillin
CPT/HCPCS: 36415; 73610-TC-LT-FY; 73630-TC-LT; 73718-TC-LT; 76705-TC; 80048; 80053; 82248; 82728; 83540; 83550; 83735; 84100; 85025; 85045; 85651; 86140; 86704; 86803; 87340; 87389; 87517; 93005; 93010; 99285-25